=== PATIENT | female | born 1965 | race Caucasian/White ===

== ENCOUNTER 2021-10-15 09:18 | Emergency (ER) | payer BC, SELFPAY ==
[2021-10-15] VITALS (19 sets, daily range): BP systolic 125–153; BP diastolic 68–83; PULSE 69–80; RESP 16–18; TEMP 36.6; O2SAT 95–100
--- NOTE | ~2021-10-15 | XR_ITS ---
XR thoracic spine 3V 10/15/2021 10:27 Indication: Mid back pain Procedure: 3 views of the thoracic spine Comparison: No prior studies for comparison. Findings: Vertebral body heights are maintained. No acute fracture or traumatic malalignment. There i s mild thoracic spondylosis. Pedicles intact. No paraspinal soft tissue abnormality. Surrounding osse ous structures within normal limits. Impression: 1: No acute abnormality of the thoracic spine. Reviewed, dictated and finalized at location B. Impression: 1: No acute abnormality of the thoracic spine.
--- NOTE | 2021-10-15 10:02 | ED.BACK ---
HPI - Back Pain/Injury General Chief Complaint: Back Pain/Injury <Debbi Martinez PA-C - Last Filed: 10/15/21 12:27> Stated Complaint: back pain <MADDY Vasquez Last Filed: 10/15/21 12:27> Time Seen by Provider: 10/15/21 09:45 <MADDY Vasquez Last Filed: 10/15/21 12:27> Source: patient <MADDY Vasquez Last Filed: 10/15/21 12:27> Mode of arrival: ambulatory <MADDY Vasquez Last Filed: 10/15/21 12:27> Limitations: no limitations <MADDY Vasquez Last Filed: 10/15/21 12:27> History of Present Illness HPI Narrative: This is a 56-year-old female that presents to the emergency department for mid back pain present since yesterday. No known injury or trauma. The pain is worse with certain movements. It is a constant pressure in her back. She did take some Aleve this morning. Denies chest pain, shortness of breath, abdominal pain, or vomiting. <Debbi Martinez PA-C - Last Filed: 10/15/21 12:27> Related Data Allergies/Adverse Reactions: Allergies Allergy/AdvReac Type Severity Reaction Status Date / Time No Known Allergies Allergy Mild Verified 10/15/21 09:25 <Debbi Martinez PA-C - Last Filed: 10/15/21 12:27> Review of Systems Review of Systems: CONSTITUTIONAL: Denies fever CARDIOVASCULAR: Denies chest pain RESPIRATORY: Denies dyspnea. GASTROINTESTINAL: Denies abdominal pain, nausea, vomiting GENITOURINARY: Denies dysuria or hematuria. MUSCULOSKELETAL: Reports back pain, joint pain, and myalgia. NEUROLOGIC: Denies numbness, or weakness. <MADDY Vasquez Last Filed: 10/15/21 12:27> All systems reviewed & are unremarkable except as noted in HPI and below <MADDY Vasquez Last Filed: 10/15/21 12:27> [facility] Past Medical History Medical History: Medical History (Updated 10/15/21 @ 12:24 by Debbi Martinez PA-C) No active medical problems <Debbi Martinez PA-C - Last Filed: 10/15/21 12:27> Family History Family History: Family History (Updated 09/26/15 @ 23:19 by DOCTOR UNKNOWN) Sibling Asthma Mother Family history of lung cancer Family history of malignant neoplasm of thyroid Grandparent Family history of malignant neoplasm of breast Father Family history of lung disease Other Family history of malignant neoplasm <Debbi Martinez PA-C - Last Filed: 10/15/21 12:27> Social History Social History: Social History Smoking status: Never smoker Alcohol intake: never <Debbi Martinez PA-C - Last Filed: 10/15/21 12:27> Exam Narrative: GENERAL: Well-appearing, well-nourished, and in no acute distress. HEAD: Normocephalic, atraumatic. EYES: EOMI. CHEST: Clear to auscultation. No respiratory distress. No wheezes rales or rhonchi HEART: Regular rate and rhythm. No murmur heard. Normal peripheral pulses. ABDOMEN: Soft, nontender, nondistended, normal active bowel sounds. BACK: No midline spinal tenderness EXTREMITIES: Normal range of motion. No edema. SKIN: Warm, dry, no rash. NEURO: No focal deficits. Alert and oriented x3. PSYCH: Normal mood and affect <Debbi Martinez PA-C - Last Filed: 10/15/21 12:27> Course [employer] [facility]/PA Physician Supervision For this patient encounter, I reviewed the [employer] [facility] or PA documentation, treatment plan, and medical decision making <Jerry Samuel MD - Last Filed: 10/15/21 17:25> Vital Signs Vital signs: Vital Signs Temperature 97.9 F 10/15/21 09:23 Pulse Rate 69 10/15/21 09:23 Respiratory Rate 18 10/15/21 09:23 Blood Pressure 153/74 H 10/15/21 09:23 Pulse Oximetry 100 10/15/21 09:23 Oxygen Delivery Room Air 10/15/21 09:23 Temperature 97.9 F 10/15/21 09:23 Pulse Rate 80 10/15/21 12:30 Respiratory Rate 16 10/15/21 12:30 Blood Pressure 132/74 10/15/21 12:30 Pulse Oximetry 100 10/15/21 12:30 Oxygen Delivery Room Air 10/15/21 09:23 <Debbi Martinez PA-C - Last Filed: 10/15/21 12:
[2021-10-15] MEDS: ACETAMINOPHEN 500 MG TABLET 1000 MG PO (10:12)
[2021-10-15] MEDS: diazePAM INJ (*CRX) 10 MG/2 ML SYRINGE 5 MG IM (10:13)
[2021-10-15 10:23] LABS: Basophils Absolute Auto 0.1 K/mm3 (0.0-0.1); Basophils Percent Auto 1.1 % (0.2-1.2); Eosinophils Absolute Auto 0.2 K/mm3 (0-0.3); Hematocrit 40.4 % (37.0-47.0); Immature Granulocyte Absolute 0.02 K/mm3 (0.00-0.031); Immature Granulocyte Percent A 0.3 % (0-0.5); Immature Platelet Fraction Pct 4.4 % (0.9-11.2); Lymphocytes Absolute Auto 2.19 K/mm3 (0.9-3.2); Lymphocytes Percent Auto 29.4 % (18.3-44.2); Mean Corpuscular HGB Conc 32.2 g/dl (32-36); Mean Corpuscular Hemoglobin 30.7 pg (26-34); Mean Corpuscular Volume 95.3 fl (80-100); Mean Platelet Volume 10.4 fl (7.4-10.4); Monocytes Absolute Auto 0.5 K/mm3 (0.1-0.6); Monocytes Percent Auto 6.6 % (2.6-8.5); Neutrophils Absolute Auto 4.5 K/mm3 (1.3-6.7); Neutrophils Percent Auto 60.6 % (45.5-73.1); Platelet Count Result 275 k/mm3 (150-375); Red Blood Count 4.24 M/mm3 (4.2-5.4); Red Cell Distribution Width 13.7 % (11.5-14.5); White Blood Count 7.5 K/mm3 (4.5-10.0)
[2021-10-15 10:30] LABS: Alanine Aminotransferase 18 U/L (6-35); Albumin Level 4.3 g/dL (3.5-5.1); Alkaline Phosphatase 78 U/L (38-126); Anion Gap 7 mmol/L (8-16); Aspartate Amino Transferase 22 U/L (14-36); Bilirubin,Total 0.3 mg/dL (0.2-1.3); Blood Urea Nitrogen 9 mg/dL (7-17); Calcium 9.7 mg/dL (8.4-10.2); Carbon Dioxide 27 mmol/L (22-30); Chloride 104 mmol/L (98-107); Estimated CRCL calculation 88 ml/min; Estimated Glomerular Filt Rate > 60; Glucose 111 mg/dL (65-110); Lipase 72 U/L (23-300); Potassium 4.1 mmol/L (3.4-5.0); Sodium 138 mmol/L (137-145)
[2021-10-15] MEDS: oxyCODONE HCL (*CRX) 5 MG TAB IR PO (11:18)
== END 2021-10-15 12:52 | disposition home or self-care (01) ==
PROVIDERS: Physician Assistant; Emergency Provider Emergency Medicine
DX: M54.6 Pain in thoracic spine (principal)
CPT/HCPCS: 36415; 72072; 80053; 83690; 85025; 85055; 96372; 99283; A9270; J3360